=== PATIENT | female | born 1940 | race Caucasian/White ===

== ENCOUNTER 2019-11-27 21:42 | Emergency (ER) | payer OTHER ==
[~2019-11-27] VITALS: Ht 160 cm; Wt 64.4 kg
[2019-11-27] MEDS ORDERED: FOSINOPRIL SODI40 M1 PO (23:05)
[2019-11-27] MEDS ORDERED: HYDROCHLOROTHIA25 M2 PO (23:06)
[2019-11-27 23:40] LABS: URINE BILIRUBIN NEGATIVE (Negative); URINE BLOOD 3+ (Negative); URINE CLARITY CLOUDY; URINE COLOR YELLOW; URINE GLUCOSE-RANDOM* NEGATIVE (Negative); URINE KETONES NEGATIVE (Negative); URINE LEUKOCYTES-REFLEX 3+ (Negative); URINE NITRITE-REFLEX NEGATIVE (Negative); URINE PROTEIN (DIPSTICK) 2+ (Negative); URINE UROBILINOGEN 0.2 E.U./dl (0.2-1.0)
[2019-11-27 23:42] LABS: SQUAMOUS 0-3 Few /LPF (0-3); URINE RBC 3-10 Few /HPF (0-2); URINE WBC-REFLEX >25 Many /HPF (0-5); WBC CLUMPS Moderate (None Seen)
[2019-11-27 23:43] LABS: CASTS None Seen /LPF (None Seen); CRYSTALS None Seen /LPF (None Seen); MUCUS 4-6 Moderate strn/LPF (None Seen)
[2019-11-27 23:47] LABS: ABSOLUTE NEUTROPHILS 16.8 thou/uL (1.4-8.2); BASOPHILS 0.2 % (0.0-2.0); EOSINOPHILS 0.9 % (0.0-3.0); HEMATOCRIT 33.9 % (37.0-47.0); HEMOGLOBIN 11.6 gm/dL (12.0-15.0); LYMPHOCYTES 3.2 % (24.0-44.0); MCH 32.3 pg (26.0-34.0); MCHC 34.3 g/dL (28.0-37.0); MCV 94.2 fL (80.0-100.0); MONOCYTES 3.2 % (1.0-8.0); PLATELET COUNT 240 thou/uL (150-400); POLYS 92.5 % (36.0-66.0); RDW 13.2 % (10.5-14.5); WBC 18.1 thou/uL (4.0-11.0)
[2019-11-27 23:57] LABS: ANION GAP 13 mmol/L (7-16); BUN 57 mg/dL (7-18); CALCIUM 8.9 mg/dL (8.5-10.1); CHLORIDE 86 mmol/L (98-107); CO2 23 mmol/L (21-32); CREATININE 2.2 mg/dL (0.6-1.0); GLUCOSE 127 mg/dL (74-106); POTASSIUM 3.1 mmol/L (3.5-5.1); SODIUM 122 mmol/L (136-145)
[2019-11-28 00:10] LABS: ALBUMIN 2.3 g/dL (3.4-5.0); DIRECT BILIRUBIN < 0.1 mg/dL (<0.1-0.2); SGOT 58 U/L (15-37); SGPT 25 U/L (30-65); TOTAL BILIRUBIN 0.6 mg/dL (0.2-1.0); TROPONIN-I <0.06 ng/mL (<0.06)
[2019-11-28] MEDS ORDERED: KEFLEX500 M1 PO (02:26)
[2019-11-28 02:41] VITALS: BP 118/59
--- NOTE | 2019-11-28 07:42 | EKG ---
[facility] [place] [address] ELECTROCARDIOGRAM REPORT Name: GAY HANEYLIVineet DENSON Room #: DEP [facility]#: [id number] Admission: 11/27/19 Attend Phys: Discharge: 11/28/19 Date of : 40 Report #: [id number] THIS REPORT FOR: cc: [facility] - Clinic physician unknown [facility] - Clinic physician unknown Mike Fitch MD [facility] ~ THIS REPORT FOR: //name// [facility] ED Test Date: 2019-11-27 Test Time: 23:02:48 Pat Name: ERIK HANEY Department: Room: Gender: F Financial Representative: : 1940 Requested By: Мария Lockett Order Number: [id number] MD: Mike Fitch Measurements Intervals [place] Rate: 88 P: 42 MT: 153 QRS: -45 QRSD: 122 T: 92 QT: 363 QTc: 440 Interpretive Statements Sinus rhythm LVH with IVCD, LAD and secondary repol abnrm No previous ECG available for comparison Electronically Signed On 11-28-2019 7:42:18 CDT by Mike Fitch [email or web address] <ELECTRONICALLY SIGNED> By: Mike Fitch MD, FACC 11/28/19 0742 01 01 Mike Fitch MD, [facility] /EPI
== END 2019-11-28 03:20 | disposition home or self-care (01) ==
LOC: ER 21:42
PROVIDERS: Emergency Medicine
DX: N39.0 Urinary tract infection, site not specified (principal); N17.9 Acute kidney failure, unspecified; E86.0 Dehydration; M54.6 Pain in thoracic spine; I10 Essential (primary) hypertension; K21.9 Gastro-esophageal reflux disease without esophagitis; M19.90 Unspecified osteoarthritis, unspecified site; Z79.899 Other long term (current) drug therapy; Z88.5 Allergy status to narcotic agent

== ENCOUNTER 2019-11-28 11:24 | Inpatient (IN) | payer OTHER, BC ==
[~2019-11-28] VITALS: Ht 160 cm; Wt 71.0 kg
[~2019-11-28 11:24] MED LIST: FOSINOPRIL SODI40 M1 PO; HYDROCHLOROTHIA25 M2 PO; KEFLEX500 M1 PO
[2019-11-28 11:25] VITALS: BP 116/54
[2019-11-28 13:48] LABS: HEMATOCRIT 30.9 % (37.0-47.0); HEMOGLOBIN 10.8 gm/dL (12.0-15.0); MCH 32.6 pg (26.0-34.0); MCV 93.3 fL (80.0-100.0); RBC 3.32 mil/uL (4.20-5.00); RDW 13.6 % (10.5-14.5); WBC 13.4 thou/uL (4.0-11.0)
[2019-11-28 14:01] LABS: ALBUMIN 2.1 g/dL (3.4-5.0); CALCIUM 8.7 mg/dL (8.5-10.1); CREATININE 1.7 mg/dL (0.6-1.0); MAGNESIUM 1.9 mg/dL (1.8-2.4); TOTAL BILIRUBIN 0.4 mg/dL (0.2-1.0); TOTAL PROTEIN 7.2 g/dL (6.4-8.2)
[2019-11-28 14:14] LABS: POTASSIUM 2.3 mmol/L (3.5-5.1)
[2019-11-28 19:27] VITALS: BP 120/42
--- NOTE | 2019-11-28 19:28 | NUR ---
FIRST ATTEMOT AT REPORT MADE. "NURSE IS BUSY IN A ROOM. WILL CALL BACK"
[2019-11-28 19:30] VITALS: BP 126/66
[2019-11-28 19:41] VITALS: BP 109/54
--- NOTE | 2019-11-28 22:28 | NUR ---
PATIENT IS A NEW ADMISSION TO THE UNIT THIS SHIFT. SHE ARRIVED VIA CART FROM THE ER AND WAS ABLE TO AMBULATE TO THE BED WITHOUT INCIDENT. PATIENT IS FULLY ALERT AND ORIENTED AND ABLE TO CALL APPROPRIATELY FOR NEEDS AND PARTICIPATE FULLY. NURSE TO COMPLETE ADMISSION PROCESS AND INITIATE PLAN OF CARE.
[2019-11-29 04:00] VITALS: BP 135/70
[2019-11-29 06:04] LABS: ABSOLUTE NEUTROPHILS 7.7 thou/uL (1.4-8.2); BASOPHILS 0.2 % (0.0-2.0); EOSINOPHILS 1.1 % (0.0-3.0); HEMATOCRIT 28.9 % (37.0-47.0); HEMOGLOBIN 10.1 gm/dL (12.0-15.0); LYMPHOCYTES 7.8 % (24.0-44.0); MCH 33.1 pg (26.0-34.0); MCV 94.5 fL (80.0-100.0); MONOCYTES 8.3 % (1.0-8.0); PLATELET COUNT 206 thou/uL (150-400); POLYS 82.6 % (36.0-66.0); RBC 3.05 mil/uL (4.20-5.00); WBC 9.3 thou/uL (4.0-11.0)
[2019-11-29 06:24] LABS: CALCIUM 8.1 mg/dL (8.5-10.1); CREATININE 1.5 mg/dL (0.6-1.0); MAGNESIUM 1.8 mg/dL (1.8-2.4)
[2019-11-29 08:00] VITALS: BP 105/42
[2019-11-29 11:52] VITALS: BP 106/54
--- NOTE | 2019-11-29 14:36 | NUR ---
Met with patient and roomate at bedside. Patient resides in independent apt with roommate. Her roommate is retired RN from [employer]. 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 Patient with no hx of DME,HH or skilled care. PCP Dr Holli Parsons from . Plan to dc home anticipate no needs. Discussed HH, patient does not think needed her roommate and RN.
[2019-11-29 16:44] VITALS: BP 133/53
--- NOTE | 2019-11-29 19:26 | NUR ---
ASSUMED CARE AT CHANGE OF SHIFT. ALERT X4 FROM HOME, DENIES PAIN, TOLERATING DIET. STAND BY TO TOILET. CALL LIGHT AND PERSONAL ITEMS IN REACH. CALLS FOR ASSISTANCE. PROGRESSING TOWARDS GOALS. FALL PRECAUTIONS IN PLACE.
[2019-11-29 19:50] VITALS: BP 132/69
[2019-11-30 03:07] VITALS: BP 134/70
[2019-11-30 07:38] VITALS: BP 156/74
[2019-11-30 08:52] LABS: HEMATOCRIT 28.4 % (37.0-47.0); HEMOGLOBIN 9.8 gm/dL (12.0-15.0); MCH 32.8 pg (26.0-34.0); MCHC 34.5 g/dL (28.0-37.0); MCV 95.1 fL (80.0-100.0); RBC 2.99 mil/uL (4.20-5.00); RDW 13.9 % (10.5-14.5)
[2019-11-30 09:09] LABS: CALCIUM 8.5 mg/dL (8.5-10.1)
[2019-11-30 11:30] VITALS: BP 128/57
[2019-11-30] MEDS ORDERED: CEFUROXIME500 MG PO (11:58)
[2019-11-30] MEDS ORDERED: ACETAMINOPHEN325 M1 PO (11:58)
[2019-11-30 12:18] VITALS: BP 128/57
--- NOTE | 2019-11-30 13:28 | NUR ---
DISCHARGING TO HOME. IV, TELE DISCONTINUED.
== END 2019-11-30 13:46 | disposition home or self-care (01) | DRG 682 ==
LOC: ER 11:24 → 2N 15:51 → EROBS 15:51 → 2N 19:41
PROVIDERS: Emergency Medicine; ADMIT Internal Medicine; ATTEND Internal Medicine
DX: N17.0 Acute kidney failure with tubular necrosis (principal); E43 Unspecified severe protein-calorie malnutrition; N39.0 Urinary tract infection, site not specified; E87.1 Hypo-osmolality and hyponatremia; K21.9 Gastro-esophageal reflux disease without esophagitis; M19.90 Unspecified osteoarthritis, unspecified site; I10 Essential (primary) hypertension; D64.9 Anemia, unspecified; E86.0 Dehydration; E05.90 Thyrotoxicosis, unspecified without thyrotoxic crisis or storm; E88.09 Other disorders of plasma-protein metabolism, not elsewhere classified; E87.6 Hypokalemia; M62.84 Sarcopenia; B96.20 Unspecified Escherichia coli [E. coli] as the cause of diseases classified elsewhere; Z88.6 Allergy status to analgesic agent; Z79.899 Other long term (current) drug therapy
CPT/HCPCS: 10081